=== PATIENT | female | born 2000 | race African-American/Black ===

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

== ENCOUNTER 2020-10-07 04:42 | Emergency (ER) | payer OTHER ==
[2020-10-07 05:00] VITALS: BMI 25.6
[2020-10-07 06:11] LABS: BASO % 0.3 % (0-2.0); EOS % 1.4 % (0-4.5); HEMATOCRIT 35.6 % (32.4-45.2); HEMOGLOBIN 12.3 GM/dL (10.7-15.3); LYMPH % 57.1 % (8-40); MCH 33.6 pg (25.7-33.7); MCHC 34.6 g/dl (32.0-36.0); MEAN CELL VOLUME 97.2 fl (80-96); MEAN PLT VOLUME 7.6 fl (7.5-11.1); MONO % 8.7 % (3.8-10.2); NEUT % 32.5 % (42.8-82.8); PLATELET COUNT 268 K/MM3 (134-434); RBC 3.66 M/mm3 (3.60-5.2); RDW 12.1 % (11.6-15.6); WHITE BLOOD COUNT 5.7 K/mm3 (4.0-10.0)
[2020-10-07 06:22] LABS: CHLORIDE 111 mmol/L (98-107); POTASSIUM 3.8 mmol/L (3.5-5.1); SODIUM 141 mmol/L (136-145)
[2020-10-07 06:24] LABS: ANION GAP 7 MMOL/L (8-16); BLOOD UREA NITROGEN 8.6 mg/dL (7-18); CALCIUM 8.5 mg/dL (8.5-10.1); CO2 24 mmol/L (21-32); GLUCOSE,RANDOM 128 mg/dL (74-106)
[2020-10-07 06:27] LABS: CREATININE 0.6 mg/dL (0.55-1.3)
[2020-10-07 07:42] VITALS: BP 113/71; PULSE 66; TEMP 98.2
== END 2020-10-07 07:58 | disposition home or self-care (01) ==
LOC: JER 04:42
DX: R07.9 Chest pain, unspecified (principal)
CPT/HCPCS: 36415; 71046-TC-FY; 80048; 84484; 84703; 85025; 85379; 93005; 93010; 99285-25